=== PATIENT | female | born 1965 | race Caucasian/White ===

== ENCOUNTER 2019-02-02 10:07 | Inpatient (IN) | payer OTHER ==
[~2019-02-02] VITALS: Ht 165.1 cm; Wt 77.1 kg
--- NOTE | 2019-02-02 10:21 | NUR ---
The patient admits to being depressed; denies suicidal ideation
[2019-02-02] MEDS ORDERED: TRAM50TA PO (10:24)
--- NOTE | 2019-02-02 10:25 | NUR ---
DR. KILGORE AT BEDSIDE FOR EVAL.
--- NOTE | 2019-02-02 10:29 | NUR ---
Patient a/ox4, denies si/hi. VSS
[2019-02-02] MEDS ORDERED: ALBUTEROL FS 2.5 MG/3 ML VIAL.NEB ONE (10:58)
[2019-02-02] MEDS ORDERED: IPRATROPIUM NEB FS 0.5 MG/2.5 ML AMPUL.NEB ONE (10:58)
[2019-02-02] MEDS ORDERED: IPRATROPIUM NEB FS 0.5 MG/2.5 ML AMPUL.NEB NEB ONE (11:00)
[2019-02-02] MEDS ORDERED: ALBUTEROL FS 2.5 MG/3 ML VIAL.NEB CONTNEB ONE (11:00)
[2019-02-02 11:29] LABS: BASOPHILS # (AUTO) 0.1 /CMM (0.0-0.2); EOSINOPHILS % (AUTO) 1.5 % (0.0-6.0); HEMATOCRIT 44 % (33-45); HEMOGLOBIN 14.2 g/dL (11.5-14.8); LYMPHOCYTES # (AUTO) 2.5 /CMM (0.8-4.8); LYMPHOCYTES % (AUTO) 38.3 % (20.0-44.0); MEAN CORPUSCULAR HGB CONC 33 g/dl (31.0-36.0); MEAN CORPUSCULAR VOLUME 84 fL (82-100); MONOCYTES # (AUTO) 0.6 /CMM (0.1-1.30); MONOCYTES % (AUTO) 9.9 % (2.0-12.0); NEUTROPHILS # (AUTO) 3.2 /CMM (1.8-8.9); NEUTROPHILS % (AUTO) 49.3 % (43.0-81.0); PLATELET COUNT (AUTO) 293 /CMM (150-450); RED BLOOD CELL COUNT(AUTO) 5.19 MIL/uL (4.0-5.2); WHITE BLOOD COUNT (AUTO) 6.5 K/uL (4.3-11.0)
[2019-02-02 11:44] LABS: ACETAMINOPHEN 1 ug/ml (10-30); ALANINE AMINOTRANSFERASE 32 U/L (12-78); ALBUMIN 4.1 g/dL (3.4-5.0); ALCOHOL, BLOOD < 3 mg/dL (0-0); ALKALINE PHOSPHATASE 60 U/L (46-116); ASPARTATE AMINOTRANSFERASE 21 U/L (15-37); BILIRUBIN,DIRECT 0.1 mg/dL (0.0-0.2); BILIRUBIN,TOTAL 0.3 mg/dL (0.2-1.0); CALCIUM, SERUM 9.5 mg/dL (8.5-10.1); CARBON DIOXIDE 29 mmol/L (21-32); CHLORIDE 101 mmol/L (98-107); CREATININE 0.7 mg/dL (0.6-1.3); GLUCOSE 127 mg/dL (74-106); POTASSIUM 3.4 mmol/L (3.5-5.1); SODIUM SERUM 140 mmol/L (136-145); TOTAL PROTEIN, SERUM 7.4 g/dL (6.4-8.2); UREA NITROGEN, BLOOD 15 mg/dL (7-18)
[2019-02-02 11:47] LABS: SALICYLATE 2.7 mg/dL (2.8-20.0)
[2019-02-02 12:03] LABS: APPEARANCE,URINE Clear (CLEAR); BILIRUBIN,URINE Negative (NEGATIVE); BLOOD, URINE Negative Ery/uL (NEGATIVE); COLOR,URINE Yellow (YELLOW); KETONES,URINE Negative (NEGATIVE); LEUKOCYTE ESTERASE ,URINE Negative (NEGATIVE); NITRITE, URINE Negative (NEGATIVE); PH,URINE 5.5 (5.0-8.0); PROTEIN,URINE Negative (NEGATIVE); UGLUCOSE >=1000 mg/dL (NEGATIVE); UROBILINOGEN,URINE 0.2 EU/dL (0.2)
[2019-02-02 12:10] LABS: BACTERIA,URINE None seen /HPF (None Seen); RBC,URINE NONE SEEN /HPF (0-2); WBC,URINE NONE SEEN /HPF (0-3)
[2019-02-02 12:11] LABS: SQUAMOUS EPITHELIAL CELL,UR Few /HPF (None Seen)
--- NOTE | 2019-02-02 13:08 | NUR ---
[facility] PAGED
--- NOTE | 2019-02-02 13:38 | NUR ---
enterprise services manager consult requested by ER for suicidal ideation but pt is on a hold and evaluation is for crisis team. SW informed ER of aforementioned informaton.
[2019-02-02] MEDS ORDERED: INSU100I19 SQ (13:53)
[2019-02-02] MEDS ORDERED: CYCL5TAB PO (13:53)
[2019-02-02] MEDS ORDERED: DULA1.5P SQ (13:53)
[2019-02-02] MEDS ORDERED: LOSA100T31 PO (13:53)
[2019-02-02] MEDS ORDERED: FLUT12AE7 PO (13:53)
[2019-02-02] MEDS ORDERED: UMEC1BLS (13:53)
[2019-02-02] MEDS ORDERED: VENL37.510 PO (13:53)
[2019-02-02] MEDS ORDERED: MELO-107 PO (13:53)
[2019-02-02] MEDS ORDERED: EMPA25TA PO ×2 (13:53→19:28)
[2019-02-02] MEDS ORDERED: ATOR40TA PO (13:53)
[2019-02-02] MEDS ORDERED: PANT40TA4 PO (13:53)
[2019-02-02] MEDS ORDERED: PREG100C55 PO (13:53)
[2019-02-02] MEDS ORDERED: SULF500T8 PO (13:53)
[2019-02-02] MEDS ORDERED: INSU100I14 SQ (13:53)
--- NOTE | 2019-02-02 14:25 | NUR ---
REPORT GIVEN TO DARSHAN BAINS.
--- NOTE | 2019-02-02 15:08 | NUR ---
PATIENT SEEN AND EVALUATED BY [employer] TEACHER.
--- NOTE | 2019-02-02 15:10 | NUR ---
PATIENT TRANSFERRED TO [facility], IN STABLE CONDITION. AWARE OF HOLD. NO DISTRESS NOTED.
[2019-02-02 15:58] VITALS: BP 152/97
[2019-02-02] MEDS ORDERED: LORAZEPAM 0.5 MG TABLET PO PRN ×2 (16:00→19:30)
[2019-02-02] MEDS ORDERED: FLUTICASONE 220MCG 1 INHALER IH PRN (16:00)
[2019-02-02] MEDS ORDERED: ACETAMINOPHEN 325 MG TABLET PO PRN (16:00)
[2019-02-02] MEDS ORDERED: MAGNESIUM HYDROXIDE 30 ML UDC PO PRN (16:00)
[2019-02-02] MEDS ORDERED: MAG HYDROX/AL HYDROX/SIMETH 30 ML UDC PO PRN (16:00)
[2019-02-02] MEDS ORDERED: BLOOD SUGAR DIAGNOSTIC 1 EACH STRIP IN ONE (16:00)
[2019-02-02] MEDS: PREGABALIN 100 MG CAPSULE PO SCH (17:22)
[2019-02-02] MEDS: TRAMADOL HCL 50 MG TABLET PO PRN (18:32)
[2019-02-02] MEDS: INSULIN ASPART/LISPRO 100 UNIT/ML CARTRIDGE SQ SCH (19:03)
[2019-02-02] MEDS: SULFASALAZINE 500 MG TABLET PO SCH (19:04)
--- NOTE | 2019-02-02 19:50 | NUR ---
GPS/RN NOTE: PATIENT UP AMBULATIRN AROUND THE UNIT WITH HER SITTER FOR SAFETY AND BEHAVIOR. A/O X3, APPROPRIATE, CALM, ANXIOUS, COOPERATIVE, WELL GROOMED. FEELING BETTER, DENIES PAIN AT THIS TIME. DENIES SI/HI. ENVIRONMNETAL SAFETY CHECK DONE. WILL CONTINUE TO MONITOR TO MAINTAIN SAFETY.
[2019-02-02] MEDS ORDERED: INSULIN DETEMIR 100 UNIT/ML CARTRIDGE SQ SCH (21:00)
[2019-02-02] MEDS: INSULIN GLARGINE, 100 UNIT/ML CARTRIDGE SQ SCH (21:00)
[2019-02-02] MEDS: ATORVASTATIN 40 MG TABLET PO SCH (21:04)
--- NOTE | 2019-02-02 21:39 | NUR ---
GPS/RN NOTE: ACCUCHECK NOW 93 MG/DL, NO DUE AT THIS TIME Addendum: 02/03/19 at 0153 by TRUDY RENNER RN GPS/RN NOTE: FOR ACCUCHECK OF 93, NO INSULIN DUE AT THIS TIME, HAD A CUP OF ORNAGE JUICE 240 ML.
[2019-02-02] MEDS: BLOOD SUGAR DIAGNOSTIC 1 EACH STRIP IN SCH (21:56)
[2019-02-02 22:46] VITALS: BP 110/64
[2019-02-03] MEDS: TRAMADOL HCL 50 MG TABLET PO PRN ×3 (01:51→17:25)
--- NOTE | 2019-02-03 01:53 | NUR ---
GPS/RN NOTE: C/O BACK AND NECK PAIN, 7/10 ON PAIN SCALE, TRAMADOL 50 MG TAB PO GIVEN.
--- NOTE | 2019-02-03 05:08 | NUR ---
GPS/RN NOTE: PATIENT AWAKE, CONFUSED, TRIED TO GET UP, AGITATED, ATTEMPTED TO HIT HER RN, LOUD, YELLING AND SCREAMING. ATIVAN 0.5 MG TAB PO REFUSED BY COVERING HER MOUTH. PLACED HER ON THE SHITAL-CHAIR Addendum: 02/03/19 at 0550 by TRUDY RENNER RN GPS/RN NOTE: NOTED USER ERROR, ABOVE NOTATION INTENDED FOR ANOTHER PATIENT.
--- NOTE | 2019-02-03 05:55 | NUR ---
GPS RN NOTE: PATIENT REQUESTING FOR ARTIFICIAL TEARS FOR HER DRY EYES. WILL FOLLOW-UP WITH MD TODAY.
[2019-02-03 08:00] VITALS: BP 113/79
[2019-02-03] MEDS: BLOOD SUGAR DIAGNOSTIC 1 EACH STRIP IN SCH ×4 (08:03→21:21)
[2019-02-03] MEDS: PANTOPRAZOLE 40 MG TABLET.DR PO SCH (08:17)
[2019-02-03] MEDS: INSULIN GLARGINE, 100 UNIT/ML CARTRIDGE SQ SCH ×2 (08:20→21:31)
[2019-02-03] MEDS: INSULIN ASPART/LISPRO 100 UNIT/ML CARTRIDGE SQ SCH ×3 (08:20→18:16)
[2019-02-03 08:33] LABS: ALBUMIN 4.1 g/dL (3.4-5.0); BILIRUBIN,TOTAL 0.4 mg/dL (0.2-1.0); CALCIUM, SERUM 9.1 mg/dL (8.5-10.1); CREATININE 0.6 mg/dL (0.6-1.3); TOTAL PROTEIN, SERUM 7.5 g/dL (6.4-8.2)
[2019-02-03 08:37] LABS: CHOLESTEROL 162 mg/dL (<200); HDL CHOLESTEROL 43 mg/dL (40-60); LDL 90 mg/dL (0-99); TRIGLYCERIDES 214 mg/dL (30-150)
[2019-02-03] MEDS: FLUTICASONE/VILANTEROL 1 EACH BLST.W.DEV IH SCH (08:45)
[2019-02-03] MEDS: SULFASALAZINE 500 MG TABLET PO SCH ×2 (08:45→17:25)
[2019-02-03] MEDS: PREGABALIN 100 MG CAPSULE PO SCH ×3 (08:46→17:25)
[2019-02-03] MEDS: LOSARTAN POTASSIUM 50 MG TABLET PO SCH (08:46)
[2019-02-03] MEDS: MELOXICAM 7.5 MG TABLET PO SCH (08:46)
[2019-02-03] MEDS: ALBUTEROL HALF STRENGTH 1.25 MG/3 ML VIAL.NEB NEB PRN ×2 (10:55→17:28)
--- NOTE | 2019-02-03 11:29 | NUR ---
DR. VAZQUEZ AND ASSESSED THE PT. AND AFTER ASSESSING ORDERED TO D/C 1:1 AND ON THE LINE OF SIGHT.
[2019-02-03 16:00] VITALS: BP 127/79
[2019-02-03] MEDS: POLYVINYL ALCOHOL 15 ML BOTTLE EACHEYE PRN (18:22)
--- NOTE | 2019-02-03 18:23 | NUR ---
ARTIFICIAL TEARS INSTILLED FOR DRY EYES.
--- NOTE | 2019-02-03 18:50 | NUR ---
MEDICATED X2 FOR NECK AND BACK PAIN WITH ULTRAM.
[2019-02-03 20:37] VITALS: BP 121/79
[2019-02-03] MEDS: ATORVASTATIN 40 MG TABLET PO SCH (21:21)
[2019-02-03] MEDS: ZOLPIDEM TARTRATE 5 MG TABLET PO PRN (22:34)
[2019-02-04] MEDS: TRAMADOL HCL 50 MG TABLET PO PRN ×3 (04:28→19:57)
[2019-02-04] MEDS: BLOOD SUGAR DIAGNOSTIC 1 EACH STRIP IN SCH ×4 (07:32→21:21)
[2019-02-04] MEDS: INSULIN ASPART/LISPRO 100 UNIT/ML CARTRIDGE SQ SCH ×3 (07:44→17:37)
[2019-02-04 08:00] VITALS: BP 127/77
[2019-02-04] MEDS: INSULIN GLARGINE, 100 UNIT/ML CARTRIDGE SQ SCH ×2 (08:05→21:24)
[2019-02-04] MEDS: FLUTICASONE/VILANTEROL 1 EACH BLST.W.DEV IH SCH (08:18)
[2019-02-04] MEDS: LOSARTAN POTASSIUM 50 MG TABLET PO SCH (08:19)
[2019-02-04] MEDS: ESCITALOPRAM OXALATE (10 MG) 10 MG TABLET PO SCH (08:19)
[2019-02-04] MEDS: PREGABALIN 100 MG CAPSULE PO SCH ×3 (08:19→16:14)
[2019-02-04] MEDS: SULFASALAZINE 500 MG TABLET PO SCH ×2 (08:20→16:14)
[2019-02-04] MEDS: PANTOPRAZOLE 40 MG TABLET.DR PO SCH (08:20)
[2019-02-04] MEDS: MELOXICAM 7.5 MG TABLET PO SCH (08:25)
[2019-02-04] MEDS: ALBUTEROL HALF STRENGTH 1.25 MG/3 ML VIAL.NEB NEB PRN (09:13)
--- NOTE | 2019-02-04 12:20 | NUR ---
GPS/RN NOTE: C/O BACK AND NECK PAIN, 8/10 ON PAIN SCALE, TRAMADOL 50 MG TAB PO GIVEN.
[2019-02-04 16:00] VITALS: BP 114/69
--- NOTE | 2019-02-04 19:57 | NUR ---
Pt c/o generalized pain 08/23. Tramadol 50 mg po prn given as ordered. Will continue to monitor.
[2019-02-04 20:09] VITALS: BP 101/72
--- NOTE | 2019-02-04 21:00 | NUR ---
Tramadol reassessed. Post 1 hour Effective. MO 0/10. Will continue to monitor.
[2019-02-04] MEDS: ATORVASTATIN 40 MG TABLET PO SCH (21:18)
[2019-02-04] MEDS: POLYVINYL ALCOHOL 15 ML BOTTLE EACHEYE PRN (23:58)
[2019-02-05] MEDS: ZOLPIDEM TARTRATE 5 MG TABLET PO PRN (00:18)
--- NOTE | 2019-02-05 00:18 | NUR ---
Pt c/o insomnia. Least restrictive measures ineffective. Ambien 5 mg po prn given as ordered. Will continue to monitor.
--- NOTE | 2019-02-05 01:21 | NUR ---
Post 1 hour griselien effective. Pt asleep in bed easy to arouse. Will continue to monitor.
[2019-02-05] MEDS: TRAMADOL HCL 50 MG TABLET PO PRN (03:59)
--- NOTE | 2019-02-05 04:07 | NUR ---
Pt c/o generalized pain 08/23. Tramadol 50 mg po prn given as ordered. Will continue to monitor.
--- NOTE | 2019-02-05 05:10 | NUR ---
Post 1 hour tramadol effective. Pt asleep easy to arouse NH 0/10. Will continue to monitor.
[2019-02-05] MEDS: BLOOD SUGAR DIAGNOSTIC 1 EACH STRIP IN SCH (07:36)
[2019-02-05] MEDS: PANTOPRAZOLE 40 MG TABLET.DR PO SCH (07:40)
[2019-02-05] MEDS: INSULIN ASPART/LISPRO 100 UNIT/ML CARTRIDGE SQ SCH (07:50)
[2019-02-05] MEDS: SULFASALAZINE 500 MG TABLET PO SCH (08:10)
[2019-02-05] MEDS: ESCITALOPRAM OXALATE (10 MG) 10 MG TABLET PO SCH (08:10)
[2019-02-05] MEDS: PREGABALIN 100 MG CAPSULE PO SCH (08:11)
[2019-02-05] MEDS: MELOXICAM 7.5 MG TABLET PO SCH (08:11)
[2019-02-05] MEDS: FLUTICASONE/VILANTEROL 1 EACH BLST.W.DEV IH SCH (08:11)
[2019-02-05] MEDS: LOSARTAN POTASSIUM 50 MG TABLET PO SCH (08:12)
--- NOTE | 2019-02-05 08:26 | NUR ---
RN NOTE- PT W NAUSEA TIS MORNING. HOLDING AM MEDS FOR NOW. MAALOX GIVEN FOR GERD/NAUSEA. MONITOR
[2019-02-05 08:46] VITALS: BP 105/68
[2019-02-05] MEDS: INSULIN GLARGINE, 100 UNIT/ML CARTRIDGE SQ SCH (09:00)
--- NOTE | 2019-02-05 09:35 | NUR ---
Family Contact: SW called the pts daughter, Dea ([phone]), and left a voicemail stating that the SW would like to discuss the pts treatment and discharge plan.
--- NOTE | 2019-02-05 09:37 | NUR ---
Family Contact: SW called the pts daughter, Manda ([phone]), and left a voicemail stating that the SW would like to discuss the pts treatment and discharge plan.
--- NOTE | 2019-02-05 10:04 | NUR ---
UR Note: JOSE called the pts [employer] risk and insurance consultant, Jesica Ceja ([phone]), and informed her that the pt is being discharged. JOSE conducted a discharge clinical with the case management coordinator to close out the case.
--- NOTE | 2019-02-05 10:04 | NUR ---
Initial Discharge Plan: Pt currently resides at her apartment located at [address], [address] [address]; . Per pt, she would like to return to her home. JOSE will work with the pt and the MD regarding appropriate discharge planning. SW will form a safe and proper discharge plan.
--- NOTE | 2019-02-05 10:15 | NUR ---
Family Contact: Pts daughter, Dea ([phone]), called the SW and the SW informed her that the pt is being discharged back to her home today with psychiatrist referrals.
--- NOTE | 2019-02-05 12:34 | NUR ---
Discharge Note: Pt was discharged to her home located at [address], [address], [place] [address]; ([phone]). Pt was transported via taxi at 12. Pts daughter, Dea ([phone]), was informed of the discharge. Upon discharge, the pt appeared to be in a euthymic mood and a calm affect. Pt stated that she does have somatic complaints that were causing her to feel depressed but stated that she knows she has to take her appropriate medication. Pt denied both suicidal and homicidal ideation as well as auditory and visual hallucinations. Pt was referred to be under the care of psychiatrist, Dr. Jamel Fried, located at [address], [address], [place] [address]; ([phone]); and a fax of records was sent to: [phone]. Pt will continue to be under the care of her manager student services, Dr. Corina Ramos, located at [address] [address]; .
--- NOTE | 2019-02-05 12:45 | NUR ---
RN NOTE- DC NOTE- PT DC AT THIS TIME. ALERT ORIENTED X 4, CALM, COOPERATIVE, DIRECTABLE DENIES SI HI AH VH AT TIME OF DC. VS STABLE IN NO DISTRESS. PT VALUABLES RETURNED TO PT, ID [id number] REMOVED, ESCORTED OFF HOSPITAL PROPERTY BY STAFF.
== END 2019-02-05 12:45 | disposition home or self-care (01) | DRG 885 ==
LOC: ER 10:08 → GPS 14:28
PROVIDERS: ADMIT Psychiatry & Neurology Psychiatry; ATTEND Family Medicine
DX: F33.1 Major depressive disorder, recurrent, moderate (principal); J45.909 Unspecified asthma, uncomplicated; I10 Essential (primary) hypertension; E11.9 Type 2 diabetes mellitus without complications; E78.5 Hyperlipidemia, unspecified; G89.29 Other chronic pain; M79.7 Fibromyalgia; G56.00 Carpal tunnel syndrome, unspecified upper limb; Z88.0 Allergy status to penicillin; Z88.8 Allergy status to other drugs, medicaments and biological substances; Z81.8 Family history of other mental and behavioral disorders; Z79.899 Other long term (current) drug therapy; T40.4X Poisoning by, adverse effect of and underdosing of other synthetic narcotics
CPT/HCPCS: 36415; 80048-TC; 80053-TC; 80061-TC; 80076-TC; 80305; 81000-TC; 82962-TC; 85025-TC; 87081-TC; G0480; J1815